=== PATIENT | female | born 1960 | race Caucasian/White ===

== ENCOUNTER 2016-11-25 09:32 | Day surgery (SDC) | payer OTHER ==
[2016-09-30 09:13] VITALS: BMI 44.3
[2016-11-24 11:59] VITALS: BMI 50.1
[~2016-11-25] VITALS: Ht 170.2 cm; Wt 145.0 kg
[2016-11-25] VITALS (16 sets, daily range): BP systolic 109–136; BP diastolic 58–72; PULSE 79–92; RESP 13–21; Ht 170.2 cm; Wt 145.0 kg
[~2016-11-25 09:32] MED LIST: SEVOFLURANE 15 MIN ONE
[2016-11-25] MEDS ORDERED: ERGO500037 PO (10:07)
[2016-11-25] MEDS ORDERED: LIDOCAINE 2% (SDV) 5 ML INJ ONE (11:38)
[2016-11-25] MEDS ORDERED: CEFAZOLIN 1 GM INJ ONE ×2 (11:39→12:01)
[2016-11-25] MEDS ORDERED: METOCLOPRAMIDE 10 MG INJ ONE (11:39)
[2016-11-25] MEDS ORDERED: PROPOFOL 20 ML ONE (11:39)
[2016-11-25] MEDS ORDERED: MEPERIDINE 100 MG INJ ONE (11:39)
[2016-11-25] MEDS ORDERED: ONDANSETRON 4 MG INJ ONE (11:39)
[2016-11-25] MEDS ORDERED: SIMV20TA PO (11:40)
[2016-11-25] MEDS ORDERED: SULF1TAB31 PO (11:41)
[2016-11-25] MEDS ORDERED: HYDROmorphONE (0.2 MG/ML) 10ML SYG IV PRN ×3 (12:30)
[2016-11-25] MEDS ORDERED: MIDAZOLAM 1 MG/ML 2 ML INJ IV PRN (12:30)
[2016-11-25] MEDS ORDERED: FENTAnyl 50 MCG/ML VIAL IV PRN ×3 (12:30)
[2016-11-25] MEDS ORDERED: DIPHENHYDRAMINE 50 MG INJ IV PRN (12:30)
[2016-11-25] MEDS ORDERED: OXYCODONE/ACETAMINOPHEN (5/325) TAB PO PRN ×2 (12:30)
[2016-11-25] MEDS ORDERED: ONDANSETRON 4 MG INJ IV PRN (12:30)
[2016-11-25] MEDS ORDERED: hydrALAzine 20 MG INJ IV PRN (12:30)
[2016-11-25] MEDS ORDERED: EPHEDrine SULFATE 50 MG/5 ML SYG IV PRN (12:30)
[2016-11-25] MEDS ORDERED: METOCLOPRAMIDE 10 MG INJ IV PRN (12:30)
[2016-11-25] MEDS ORDERED: MEPERIDINE 25 MG INJ IV PRN (12:30)
[2016-11-25] MEDS ORDERED: LABETALOL HCL 20MG INJ IV PRN (12:30)
--- NOTE | 2016-11-25 12:44 | OPR ---
Date/Time of Note Date/Time of Note DATE: 11/25/16 TIME: 12:42 Operative Report Procedure Date: Nov 25, 2016 Preoperative Diagnosis Uterine cancer, vaginal lesion Postoperative Diagnosis Same Operation Performed EUA, excision of upper vaginal lesion Surgeon: PILI MATIAS MD Anesthesia Type: general Anesthesiologist: BECKY GASCA MD Estimated Blood Loss: 10 - 50 ml's Specimens Upper vaginal lesion Complications: no Pt Condition Post Procedure: stable Disposition: PACU Operative\Procedure Findings 5 mm upper vaginal mucosal lesion PILI MATIAS MD Nov 25, 2016 12:44
--- NOTE | 2016-11-29 13:13 | OPR ---
DATE OF OPERATION: 11/25/2016 PREOPERATIVE DIAGNOSES: 1. Vaginal lesion. 2. History of uterine carcinoma. POSTOPERATIVE DIAGNOSES: 1. Vaginal lesion. 2. History of uterine carcinoma. PATHOLOGY: Pending pathology. PROCEDURE: 1. Examination under anesthesia. 2. Excision of upper vaginal lesion. 3. Upper vaginectomy. SURGEON: Sherri Abel MD CHIEF BUSINESS OFFICER: None. ANESTHESIOLOGIST: Riley Baron MD ESTIMATED BLOOD LOSS: Minimal. INTRAOPERATIVE FINDINGS: The patient has a few mm upper vaginal lesion. This was completely excised. The defect was closed using Vicryl suture. HISTORY: This is a 56-year-old, White female who is obese. She has a history of uterine cancer about a year ago. She was treated with primary surgery. During the follow-up period she was found to have upper vaginal lesion and was bleeding. Initial biopsy in the office was negative. Now she is ready to undergo the definitive excision. OPERATIVE PROCEDURE: She was taken to the OR after achieving adequate anesthesia and placed in the lithotomy position. She was appropriately prepped and draped in the usual sterile fashion. The patient was tight and I was able to stretch the introitus. I was able to put in weight speculum and the was retracted. At this time the lesion was visible and Allis clamp to grab the lesion and the upper vaginal lesion was excised using Metzenbaum completely. The edges were cauterized with hemostasis. Following hemostasis I then proceeded to approximate the defect using 0 Vicryl suture with CT2 needle in a figure of 8 fashion. This was completely closed without difficulty and it was hemostatic. Following closure the vagina was further cleansed. I then used red rubber catheter to catheterize the bladder and the urine was clear. At this time the patient extubated and transferred to recovery in stable condition. Dictated By: Sherri Abel MD /[email or web address]/micki /Document#: [id number]
== END 2016-11-25 14:30 | disposition home or self-care (01) ==
LOC: SDS 09:32
PROVIDERS: ATTEND Dermatology
DX: N89.8 Other specified noninflammatory disorders of vagina (principal); E78.5 Hyperlipidemia, unspecified; E66.01 Morbid (severe) obesity due to excess calories; Z68.43 Body mass index [BMI] 50.0-59.9, adult; Z85.42 Personal history of malignant neoplasm of other parts of uterus
CPT/HCPCS: 57135; 84703; 88305; J0690; J2175; J2405; J2765; Z7512; Z7610